=== PATIENT | female | born 1980 | race Caucasian/White ===

== ENCOUNTER → 2020-06-20 | Emergency (ER) | payer SELFPAY | LOC: ED 19:59 | DX: R69 Illness, unspecified (principal); Z53.21 Procedure and treatment not carried out due to patient leaving prior to being seen by health care provider ==

== ENCOUNTER → 2022-03-12 | Outpatient (CLI) | payer SELFPAY | LOC: RAD 10:47 | DX: R10.31 Right lower quadrant pain (principal); R31.9 Hematuria, unspecified ==

== ENCOUNTER 2024-04-30 18:09 | Emergency (ER) | payer OTHER ==
[~2024-04-30 18:09] MED LIST: ARIPIPRAZOLE10 M1 PO; DROSPIRENONE AN1 TAB PO
[2024-04-30] MEDS ORDERED: OLANZapine 2.5 MG,Water For Injection,Sterile 0.5 ML IM ONE ×2 (18:45→19:15)
[2024-04-30 20:25] LABS: BASO # 0.03 K/mm3 (0.02-0.10); EOS % 2.3 % (1.0-5.0); HEMATOCRIT 40.3 % (37.0-47.0); LYMPH# 2.36 K/mm3 (1.50-4.00); MEAN CELL VOLUME 93 fl (78-100); MEAN CORPUSCULAR HEMOGLOBIN 30 pg (27-31); MEAN CORPUSCULAR HGB CONC 32 g/dL (33-37); MEAN PLATELET VOLUME 9.7 fl (7.4-10.4); MONO # 1.26 K/mm3 (0.20-0.80); NEU # 8.84 K/mm3 (1.40-6.50); PLATELET COUNT 333 K/mm3 (130-400); RED BLOOD COUNT 4.34 M/mm3 (4.10-5.30); RED CELL DISTRIBUTION WIDTH 14.2 % (11.5-14.5); WHITE BLOOD COUNT 12.8 K/mm3 (4.8-10.8)
[2024-04-30 20:32] LABS: ALBUMIN 3.8 g/dL (3.5-5.0); SODIUM 140 mmol/L (136-145)
[2024-04-30 20:34] LABS: CALCIUM 9.4 mg/dL (8.3-10.5)
[2024-04-30 20:35] LABS: GLUCOSE 83 mg/dL (65-105); TOTAL PROTEIN 6.5 g/dL (6.4-8.3)
[2024-04-30 20:36] LABS: CARBON DIOXIDE 22 mmol/L (22-29)
[2024-04-30 20:37] LABS: TOTAL BILIRUBIN 0.7 mg/dL (0.2-1.2)
[2024-04-30 20:40] LABS: ALCOHOL IN-HOUSE < 10 mg/dL (<10); AST-SGOT 16 U/L (5-34)
[2024-04-30 20:42] LABS: ALT/SGPT 6 U/L (0-55)
[2024-04-30 20:52] LABS: ACETAMINOPHEN < 1 ug/mL
[2024-04-30] MEDS ORDERED: metroNIDAZOLE 250 MG TABLET PO ONE (23:15)
[2024-04-30 23:17] LABS: URINE APPEARANCE CLOUDY (CLEAR); URINE BILIRUBIN NEGATIVE (NEGATIVE); URINE BLOOD TRACE-INTACT (NEGATIVE); URINE COLOR YELLOW (YELLOW); URINE GLUCOSE NEGATIVE (NEGATIVE); URINE KETONE NEGATIVE (NEGATIVE); URINE LEUKOCYTE ESTERASE 2+ (NEGATIVE); URINE NITRATE NEGATIVE (NEGATIVE); URINE PROTEIN(semi-quant) TRACE (NEGATIVE); URINE WBC >50 /hpf (0-3)
[2024-04-30 23:18] LABS: URINE MUCUS PRESENT (NOT PRESENT)
[2024-05-01 09:13] VITALS: BP 102/75
[2024-05-01 12:46] VITALS: BP 116/88
[2024-05-01 14:46] VITALS: BP 125/86
[2024-05-01 16:46] VITALS: BP 120/85
[2024-05-01] MEDS ORDERED: metroNIDAZOLE 250 MG TABLET PO ONE (19:45)
[2024-05-01 19:55] VITALS: BP 112/72
== END 2024-05-01 19:59 ==
LOC: ED 18:09
PROVIDERS: Family Medicine
DX: R41.82 Altered mental status, unspecified (principal); F15.10 Other stimulant abuse, uncomplicated; A59.03 Trichomonal cystitis and urethritis
CPT/HCPCS: J2359-TB